=== PATIENT | female | born 1940 ===

== ENCOUNTER 2018-08-12 08:30 | Inpatient (IN) | payer OTHER ==
[2018-08-12] MEDS ORDERED: SPIRONOLACTONE1 EACH PO (10:48)
[2018-08-12] MEDS ORDERED: AVAPRO300 MG PO (10:48)
[2018-08-12] MEDS ORDERED: LANTUS (10:52)
[2018-08-23] MEDS ORDERED: ULTRACET PO (12:14)
[2018-08-23] MEDS ORDERED: MIRALAX17 GM PO (12:14)
[2018-08-23] MEDS ORDERED: NEURONTIN300 MG PO (12:14)
== END 2018-08-23 14:41 | disposition home or self-care (01) | DRG 355 ==
LOC: SURH 08-20 08:30 → O/R 08-20 10:33 → SURH 08-20 10:33
PROVIDERS: Surgery
PROC: 0WJF4ZZ Inspection of Abdominal Wall, Percutaneous Endoscopic Approach (ICD-10-PCS; 2018-08-20)
PROC: 0JX80ZZ Transfer Abdomen Subcutaneous Tissue and Fascia, Open Approach (ICD-10-PCS; 2018-08-20)
PROC: 0WUF0JZ Supplement Abdominal Wall with Synthetic Substitute, Open Approach (ICD-10-PCS; principal; 2018-08-20 11:15)
PROC: 3E0F7GC Introduction of Other Therapeutic Substance into Respiratory Tract, Via Natural or Artificial Opening (ICD-10-PCS; 2018-08-21)
DX: K43.0 Incisional hernia with obstruction, without gangrene (principal); K42.0 Umbilical hernia with obstruction, without gangrene; I10 Essential (primary) hypertension; E11.9 Type 2 diabetes mellitus without complications; E03.8 Other specified hypothyroidism; J45.998 Other asthma; K21.9 Gastro-esophageal reflux disease without esophagitis